=== PATIENT | female | born 2005 | race Two or more races ===

== ENCOUNTER 2025-09-25 01:03 | Emergency (ER) | payer SELFPAY ==
[2025-09-25] VITALS (10 sets, daily range): BP systolic 94–120; BP diastolic 44–67; PULSE 59–132; RESP 14–20; TEMP 36.7–36.9; O2SAT 97–100; BMI 18.3
--- NOTE | 2025-09-25 01:06 | ED_ITS ---
HPI - Altered Mental Status General Chief Complaint: Psychiatric Symptoms Stated Complaint: Sec 12, ETOH Time Seen by Provider: 09/25/25 01:06 History of Present Illness HPI narrative: Patient is a 20-year-old biologically female preferred pronoun is he him presented today with having possible suicidal thoughts after drinking alcohol and becoming extremely agitated. Stating multiple times that she wants to and became very agitated at a [employer]. Patient was papers by PD for further evaluation. Related Data Allergies Allergy/AdvReac Type Severity Reaction Status Date / Time Unable to Assess Allergy Verified 09/25/25 01:18 Review of Systems 2 Review of Systems: Unable to answer review of system secondary to agitation Physical Exam ED Exam Exam: Extremely agitated screaming Eyes: Pupils equal, round and reactive to light. ENT: Very loud voice. Screaming yelling Neck: Normal inspection. Neck supple. No lymph nodes noted. No crepitus CVS: Tachycardic but seems regular Respiratory: Grossly airway is intact as patient is screaming Abdomen: Soft and nontender. No rigidity. No distention. good BS x4 Skin: Skin warm and dry. Normal skin color. Normal skin turgor. Extremities: No lower extremity edema. Neurovascular intact to all extremities. No Lacerations. No Rash Neuro: Extremely agitated moving all extremities. Cranial nerves grossly intact Vital Signs: Vital Signs - 24 hr 09/25/25 01:10 09/25/25 01:25 09/25/25 01:40 Temperature Pulse Rate 132 H 96 Respiratory Rate 20 20 19 Blood Pressure 120/67 113/66 Pulse Oximetry 98 97 Oxygen Delivery Method Room Air Room Air 09/25/25 01:55 09/25/25 02:10 09/25/25 02:31 Temperature Pulse Rate 99 99 98 Respiratory Rate 20 19 16 Blood Pressure 106/46 L 110/66 114/60 Pulse Oximetry 99 98 99 Oxygen Delivery Method Room Air Room Air Room Air 09/25/25 06:00 09/25/25 11:39 Temperature 98.1 F 98.5 F Pulse Rate 73 59 Respiratory Rate 14 19 Blood Pressure 96/59 L 94/44 L Pulse Oximetry 99 100 Oxygen Delivery Method Room Air Room Air BMI result Body Mass Index 18.3 Course Course Course Narrative: Time: 05:35 Date: 09/25/25 Provider: Dat Bowens MD Patient in physician observation for psychiatric evaluation after making suicidal while being intoxicated. Patient was agitated last night and required chemical restraint with Haldol 5 mg, Benadryl 50 mg and Versed 2 mg IM. She also received ondansetron 4 mg IV for nausea. ? The patient is waiting for CARE team evaluation. Will continue to monitor. Time: 14:16 Date: 09/25/25 Provider: Dat Bowens MD Physician observation ended at 14:16. Patient was evaluated by care team in his no longer suicidal. The patient told me that she was doing Jell-O shots in drinking shots of alcohol last night and does not have a clear memory of coming to the emergency department. She currently states she is not suicidal or homicidal. Patient's laboratory evaluation revealed a microcytic anemia with an H&H of 9.9 and 34.5 with an MCV of 69. LFTs were normal. Quantitative beta-hCG was negative. Ethanol level was significantly elevated at 329. Patient was given referral information from the care team and I will also give her referral information regarding her alcohol use disorder. Patient was advised to take iron 325 mg once a day for 3 months to correct her iron deficient anemia. Patient was discharged home. Medications Administered Discontinued Medications Generic Name Dose Route Start Last Admin Trade Name Freq PRN Reason Stop Dose Admin Diphenhydramine HCl 50 mg 09/25/25 01:07 09/25/25 01:10 Diphenhydramine Hcl 50 Mg/Ml Vial IM 09/25/25 01:08 50 mg ONCE ONE Administration Haloperidol Lactate 5 mg 09/25/25 01:07 09/25/25 01:10 Haloperidol Lactate 5 Mg/Ml Vial IM 09/25/25 01:08 5 mg ONCE ONE Administration Sodium Chloride 1,000 mls @ 999 mls/hr 09/25/25 01:15 09/25/25 03:11 Ns IV 09/25/25 02:15 Infused .Q1H1M CHE Infusion Midazolam HCl 2 mg 09/25/25 01:07 09/25/25 01:10 Midazolam Hcl 2 Mg/2 Ml Vial IM 09/25/25 01:08 2 mg ONCE ONE Administration Ondansetron HCl 4 mg 09/25/25 03:50 09/25/25 03:54 Ondansetron Hcl 4 Mg/2 Ml Vial IVPUSH 09/25/25 03:51 4 mg ONCE ONE Administration Medical Decision Making Medical Decision Making MDM Narrative: Attempted to verbally deescalate the situation but to no avail. We ended up having to give patient has some Haldol Benadryl and midazolam. With good results patient is now more calm. Will get labs. Will get crisis to evaluate patient. Patient became more calm after medications. We were able to draw blood. Patient's EKG by my interpretation showed a sinus rhythm heart rate is 90 UT QRS QTC is normal QTC corrected is 497. No acute distress. Currently awaiting sobriety and waiting for crisis to evaluate patient. Will monitor very carefully. Patient was papers by PD. Admission/Observation Consideration of admission/observation: Escalation of care including admission/observation considered Consult Healthcare Provider Management of the patient was discussed with: Behavioral Health Provider (Care team will be consulted) Lab Data 09/25/25 01:33 09/25/25 01:33 Labs: Lab Results 09/25/25 09/25/25 09/25/25 Range/Units 01:33 02:37 04:03 WBC 9.3 (4.8-10.8) X10*3/uL RBC 4.98 (4.20-5.50) X10*6/uL Hgb 9.9 L (12.0-16.0) g/dl Hct 34.5 L (37.0-47.0) % MCV 69.3 L (80.0-98.0) fL MCH 19.9 L (27.0-33.0) pg MCHC 28.7 L (31.0-35.0) g/dl RDW 18.1 H (11.0-16.0) % Plt Count 417 H (160-400) X10*3/uL MPV 10.4 (9.4-12.3) fL Immature Gran % (Auto) 0.2 (0.0-0.4) % Neut % (Auto) 51.2 (45-73) % Lymph % (Auto) 42.2 H (20-40) % Johnson % (Auto) 5.3 (2-11) % Eos % (Auto) 0.1 (0-4) % Baso % (Auto) 1.0 (0-2) % Lymph # (Auto) 3.9 (1.2-4.9) X10*3/uL Johnson # (Auto) 0.5 (0.1-1.2) X10*3/uL Eos # (Auto) 0.0 (0.0-0.4) X10*3/uL Baso # (Auto) 0.1 (0.0-0.2) X10*3/uL Abs Immat Gran (auto) 0.02 (0.00-0.03) X10*3/uL Absolute Neuts (auto) 4.8 (2.0-8.3) x10*3/uL Absolute Nucleated RBC 0.000 (0.0-0.012) X10*3/uL Nucleated RBC % (auto) 0.0 (0.0-0.2) /100WBC Sodium 145 (135-145) mmol/L Potassium 3.1 L (3.3-5.1) mmol/L Chloride 114 H (96-108) mmol/L Carbon Dioxide 14 L (22-29) mmol/L Anion Gap 20 (12-20) BUN 8 L (9-16) mg/dL Creatinine 0.69 (0.5-1.4) mg/dL Estim Creat Clear Calc 86.5 Estimated GFR > 60 Random Glucose 96 (60-115) mg/dL Calcium 8.7 (8.4-10.2) mg/dL Total Bilirubin 0.2 (0.0-1.0) mg/dL Direct Bilirubin < 0.2 (0.0-0.5) mg/dL AST 30 (5-31) U/L ALT 17 (0-31) U/L Alkaline Phosphatase 68 (39-117) U/L Total Protein 7.8 (6.5-8.0) g/dL Albumin 5.0 (3.5-5.0) g/dL Beta HCG, Quant < 2 mIU/mL Urine Color Yellow Urine Appearance Clear Urine pH 6.0 (5.0-9.0) Ur Specific [place] <= 1.005 (1.005-1.025) Urine Protein Negative (Neg-Trace) mg/dL Urine Glucose (UA) Negative (Negative) mg/dL Urine Ketones Negative (Negative) mg/dL Urine Blood Negative (Negative) Urine Nitrite Negative (Negative) Ur Leukocyte Esterase Small (1+) H (Negative) Urine RBC 0-2 (0-2) /HPF Urine WBC 0-5 (0-5) /HPF Ur Squamous Epith Cells 0-2 (0-2) /HPF Urine Bacteria None Seen (None Seen) Hyaline Casts 0-2 (0-2) /LPF Salicylates < 5.0 L (15-30) mg/dL Urine Opiates Screen Not Detected (Not Detect) Ur Buprenorphine Scrn Not Detected (Not Detect) ng/mL Ur Oxycodone Screen Not Detected (Not Detect) ng/mL Urine Methadone Screen Not Detected (Not Detect) ng/mL Urine Fentanyl Screen Not Detected (Not Detect) Acetaminophen < 3 (<30) mcg/mL Ur Barbiturates Screen Not Detected (Not Detect) Ur Phencyclidine Scrn Not Detected (Not Detect) Ur Amphetamines Screen Not Detected (Not Detect) U Benzodiazepines Scrn POSITIVE H (Not Detect) Urine Cocaine Screen Not Detected (Not Detect) U Marijuana (THC) Screen Not Detected (Not Detect) Ethyl Alcohol 329 H* mg/dL Discharge Plan Discharge Clinical Impression: Acute alcohol intoxication, Suicidal ideation, Microcytic hypochromic anemia Patient Disposition: Home, Self-Care Instructions: Iron Rich Diet (ED) Additional Instructions: When you came into the emergency department last night you were agitated and we did need to give you medications to help you calm down. You received Haldol, diphenhydramine and Versed intramuscularly. The legal limit for alcohol intoxication in your blood is 80. Your blood alcohol level was 329. Drinking shots were eating jello shot of strong alcohol over short period of time can lead to sudden rises in your alcohol level causing alcohol poisoning and . This has a dangerous way to drinking alcohol and in the future you she will avoid doing multiple shots of strong alcohol. You have a microcytic anemia which is consistent with low blood iron. Take ferrous sulfate 325 mg, 1 pill daily for 3 months and this should correct your iron deficient anemia. This has an [id number] medication. Behavioral Health Issues You were seen in our Emergency Department today for treatment of a behavioral health issue. It is important after your visit that you follow up with either your behavioral health provider or a primary care doctor within 7 days.? If you have trouble finding a therapist you can reach out to [address] [phone] The National Suicide and Crisis Lifeline can be reached 7 days a week 24 hours a day.? Call 988 to speak with someone.? Return for any worsening symptoms or concerns such as thoughts of self harm or harm to others. Please call 911 if you feel your mental health is worsening.? Alcohol use disorder You were seen in the Emergency Department today for treatment of alcohol use disorder.? If you would like to cut down or stop your alcohol use please consider calling our outpatient Addiction Treatment office:? [facility] ([id number]) [address] [place] [address] You have also been given a list of treatment providers in the area that can assist as well.? If you experience seizures, vomiting blood, black stools, falls, severe headache, chest pain, fevers, trouble breathing, hallucinations or any other concerns you need to call 911 or seek immediate care. Please stay hydrated.
--- NOTE | 2025-09-25 01:35 | ECG_ITS ---
Test Reason : IM Blood Pressure : */* mmHG Vent. Rate : 93 BPM Atrial Rate : 93 BPM P-R Int : 160 ms QRS Dur : 78 ms QT Int : 400 ms P-R-T Axes : 61 78 19 degrees QTcB Int : 497 ms Normal sinus rhythm Possible Left atrial enlargement Prolonged QT Abnormal ECG No previous ECGs available Referred By: Leonie Savage Electronically Signed By: SHIREEN LINCOLN MD
[2025-09-25 01:36] LABS: MANUAL DIFF FLAG NO
[2025-09-25 01:37] LABS: Hematocrit 34.5 % (37.0-47.0); Hemoglobin 9.9 g/dl (12.0-16.0); Imm Gran Abs Auto 0.02 X10*3/uL (0.00-0.03); Imm Gran Pct Auto 0.2 % (0.0-0.4); Lymphocytes Absolute Auto 3.9 X10*3/uL (1.2-4.9); Mean Corpuscular HGB Conc 28.7 g/dl (31.0-35.0); Mean Corpuscular Hemoglobin 19.9 pg (27.0-33.0); Mean Corpuscular Volume 69.3 fL (80.0-98.0); NRBC Abs Auto 0.000 X10*3/uL (0.0-0.012); NRBC Pct Auto 0.0 /100WBC (0.0-0.2); Platelet Count 417 X10*3/uL (160-400); Red Blood Count 4.98 X10*6/uL (4.20-5.50); White Blood Count 9.3 X10*3/uL (4.8-10.8)
--- NOTE | 2025-09-25 01:48 | PC.NURSE ---
pt margarita from home, per ems, call was made for psychiatric symptoms and etoh use. on ems arrival, pt agitated combative and violent. on arrival into room pt screaming and agitated, combative with staff. pt placed in physical restraints and given medications. pt screaming multiple times i want to . PD section 12 pt. 20g placed in left ac and fluids administering. sitter at bedside for safety. see restraint form.
[2025-09-25 01:56] LABS: Alanine Aminotransferase 17 U/L (0-31); Albumin Level 5.0 g/dL (3.5-5.0); Alkaline Phosphatase 68 U/L (39-117); Anion Gap 20 (12-20); Aspartate Amino Transferase 30 U/L (5-31); Blood Urea Nitrogen 8 mg/dL (9-16); Calcium 8.7 mg/dL (8.4-10.2); Carbon Dioxide 14 mmol/L (22-29); Chloride 114 mmol/L (96-108); Creatinine Clr Calc Pharmacy 86.5; Estimated Glomerular Filt Rate > 60; Potassium 3.1 mmol/L (3.3-5.1); Sodium 145 mmol/L (135-145); Total Protein 7.8 g/dL (6.5-8.0)
--- NOTE | 2025-09-25 02:30 | PC.NURSE ---
pt removed for x4 restraints at this time, calm and cooperative. pt assisted with bed change due to incontinence. pt resting in stretcher.
[2025-09-25 02:49] LABS: Appearance Urine Clear; Glucose Urine UA Negative (Negative); PH 6.0 (5.0-9.0); Specific Gravity - Urine <= 1.005 (1.005-1.025); UMIC TRIGGER UACC YES
[2025-09-25 03:00] LABS: Cannabinoid Screen Urine Not Detected (Not Detect)
[2025-09-25 03:19] LABS: UACC Culture Trigger YES
--- NOTE | 2025-09-25 03:50 | PC.NURSE ---
pt awake and reporting nausea at this time, verbal order for zofran placed per MD Partida
[2025-09-25 04:26] LABS: Acetaminophen LAB < 3 mcg/mL (<30); Salicylate < 5.0 mg/dL (15-30)
--- NOTE | 2025-09-25 06:06 | PC.NURSE ---
pt ambulatory to bathroom with steady gait and offers no complaints at this time
== END 2025-09-25 14:45 | disposition home or self-care (01) ==
PROVIDERS: Emergency Medicine Emergency Medical Services; Emergency Provider Emergency Medicine Emergency Medical Services
DX: F10.129 Alcohol abuse with intoxication, unspecified (principal); R45.851 Suicidal ideations; Y90.8 Blood alcohol level of 240 mg/100 ml or more; D50.9 Iron deficiency anemia, unspecified; R94.31 Abnormal electrocardiogram [ECG] [EKG]; R11.0 Nausea; Z79.899 Other long term (current) drug therapy; Z51.81 Encounter for therapeutic drug level monitoring
CPT/HCPCS: 36415; 80048; 80076; 80143; 80179; 80307; 81001; 84702; 85025; 87086; 93005; 96361; 96372; 96374; 99285; J1200; J1630; J2250; J2405; S9485

== ENCOUNTER → 2025-09-25 01:35 | Outpatient (BNV) | payer SELFPAY | PROVIDERS: Emergency Provider Emergency Medicine Emergency Medical Services; Visit Provider Internal Medicine Cardiovascular Disease | DX: R94.31 Abnormal electrocardiogram [ECG] [EKG] (principal); R07.9 Chest pain, unspecified | CPT/HCPCS: 93010 ==